=== PATIENT | male | born 1945 | race Caucasian/White ===

== ENCOUNTER 2023-06-18 15:55 | Outpatient (CLI) | payer MEDICARE, BC ==
[~2023-06-18 15:55] MED LIST: AMI200T PO; APIX5TAB3 PO; GLUC-95 PO; LEVO50TA PO; LOSA100T58 PO; OMEG1CAP46 PO
== END 2023-06-18 23:59 | disposition home or self-care (01) ==
LOC: RT 15:55
PROVIDERS: ATTEND Internal Medicine Cardiovascular Disease
DX: R94.2 Abnormal results of pulmonary function studies (principal); R53.82 Chronic fatigue, unspecified
CPT/HCPCS: 94010; 94729

== ENCOUNTER 2023-07-04 06:06 | Day surgery (SDC) | payer MEDICARE, BC ==
[2023-07-03 13:41] LABS: ANION GAP 10 (8-16); BLOOD UREA NITROGEN 23 MG/DL (7-18); BUN/CREATININE RATIO 16.3 (10.0-20.0); CALCIUM 9.3 MG/DL (8.5-10.1); CHLORIDE 104 MMOL/L (99-107); CREATININE 1.41 MG/DL (0.60-1.10); GLUCOSE 103 MG/DL (70-104); POTASSIUM 4.4 MMOL/L (3.5-5.1); SODIUM 139 MMOL/L (135-145); TOTAL CARBON DIOXIDE 25.5 MMOL/L (24-32); eGFR 49 ML/MIN
[2023-07-03 13:43] LABS: APTT 31 SECONDS (22-32); PROTHROMBIN TIME 11.2 SECONDS (9.0-12.0)
[2023-07-03 13:47] LABS: BASOPHILS # (AUTO) 0.1 X10'3 (0-0.2); BASOPHILS % (AUTO) 1.3 % (0-1); EOSINOPHILS # (AUTO) 0.4 X10'3 (0-0.9); EOSINOPHILS % (AUTO) 7.6 % (0-6); HEMATOCRIT 47.6 % (42.0-52.0); HEMOGLOBIN 15.8 g/dl (14.0-17.9); LYMPHOCYTES # (AUTO) 1.2 X10'3 (1.1-4.8); LYMPHOCYTES % (AUTO) 21.1 % (21-51); MEAN CORPUSCULAR HEMOGLOBIN 31.1 PG (27.0-31.0); MEAN CORPUSCULAR HGB CONC 33.2 g/dL (33.0-36.5); MEAN CORPUSCULAR VOLUME 93.6 FL (78-98); MEAN PLATELET VOLUME 9.2 FL (7.4-10.4); MONOCYTES # (AUTO) 0.5 X10'3 (0-0.9); MONOCYTES % (AUTO) 8.2 % (2-12); NEUTROPHILS # (AUTO) 3.5 X10'3 (1.8-7.7); NEUTROPHILS % (AUTO) 61.8 % (42-75); PLATELET COUNT 180 X10'3 (140-440); RED BLOOD COUNT 5.09 X10'6 (4.70-6.10); WHITE BLOOD COUNT 5.7 X10'3 (4.5-11.0)
[~2023-07-04] VITALS: Ht 180.3 cm; Wt 99.6 kg
[2023-07-04 06:10] VITALS: BP 157/83; PULSE 50; RESP 16; TEMP 98; O2SAT 97
[2023-07-04] MEDS ORDERED: SOTA80TA10 PO (06:32)
[2023-07-04] MEDS ORDERED: CYAN250010 PO (06:32)
[2023-07-04] MEDS ORDERED: MULT-1085 PO (06:32)
[2023-07-04] MEDS ORDERED: ERGO400C PO (06:32)
[2023-07-04] MEDS ORDERED: MIDAZolam 1mg/ml 10ml vial IV ONE (06:45)
[2023-07-04] MEDS ORDERED: diphenhydrAMINE 25mg capsule PO ONE (06:45)
[2023-07-04] MEDS ORDERED: atropine 0.1mg/ml 10ml syringe IV ONE (06:45)
[2023-07-04] MEDS ORDERED: normal saline 1000ml 1,000 ML IV SCH (06:45)
[2023-07-04] MEDS ORDERED: morphine 10mg/ml inj. IV ONE (06:45)
[2023-07-04] MEDS ORDERED: amiodarone 150mg/dext, iso-os 100 ML IV ONE (06:45)
[2023-07-04] MEDS ORDERED: LORazepam 0.5 MG tablet PO ONE (06:45)
[2023-07-04] MEDS ORDERED: midazolam 1 mg/ML 2ml injection ONE (07:42)
[2023-07-04] MEDS ORDERED: fentaNYL/PF 50MCG/1 ML 2ML syringe ONE ×2 (07:42→07:43)
--- NOTE | 2023-07-04 07:55 | NUR ---
Pt to labeling strategist for procedure
[2023-07-04] MEDS ORDERED: amiodarone 50MG/ML inj IV ONE (07:59)
[2023-07-04] MEDS ORDERED: atropine 0.1mg/ml 10ml syringe ONE (08:00)
[2023-07-04] MEDS ORDERED: morphine 2 MG/ML inj. syringe ONE (08:00)
[2023-07-04 08:45] VITALS: BP 147/75; PULSE 56; RESP 16; O2SAT 93
[2023-07-04 09:00] VITALS: BP 151/89; PULSE 54; RESP 13; O2SAT 94
[2023-07-04 09:15] VITALS: BP 147/75; PULSE 51; RESP 12; O2SAT 93
[2023-07-04 09:30] VITALS: BP 148/74; PULSE 51; RESP 14; O2SAT 93
[2023-07-04 10:00] VITALS: BP 148/72; PULSE 54; RESP 16; O2SAT 94
== END 2023-07-04 10:00 | disposition home or self-care (01) ==
LOC: SSTAY O 06:06
PROVIDERS: ATTEND Internal Medicine Cardiovascular Disease
DX: I48.91 Unspecified atrial fibrillation (principal); I45.2 Bifascicular block; I10 Essential (primary) hypertension; E78.5 Hyperlipidemia, unspecified; Z79.01 Long term (current) use of anticoagulants; Z79.82 Long term (current) use of aspirin; Z79.890 Hormone replacement therapy; Z79.899 Other long term (current) drug therapy
CPT/HCPCS: 36415; 80048; 85025; 85610; 85730; 92960; 93005; J2250; J3010; J7030; 96360; 99152; J0282; J0461; J2270

== ENCOUNTER 2023-09-27 09:45 | Emergency (ER) | payer MEDICARE, BC ==
[~2023-09-27] VITALS: Ht 180.3 cm; Wt 100.0 kg
[~2023-09-27 09:45] MED LIST changes: -AMI200T PO; +CYAN250010 PO; +ERGO400C PO; +MULT-1085 PO; +SOTA80TA10 PO
[2023-09-27 09:49] VITALS: BP 119/73; PULSE 61; RESP 16; O2SAT 96
[2023-09-27] MEDS ORDERED: AMOX-101 PO (11:00)
[2023-09-27] MEDS ORDERED: CARB15DR91 RIGHT EAR (11:00)
[2023-09-27 11:20] VITALS: TEMP 98.2
== END 2023-09-27 11:22 | disposition home or self-care (01) ==
LOC: ER 09:46
DX: H60.92 Unspecified otitis externa, left ear (principal); Z79.2 Long term (current) use of antibiotics; Z79.899 Other long term (current) drug therapy
CPT/HCPCS: 99283

== ENCOUNTER 2024-07-22 08:05 | Outpatient (CLI) | payer MEDICARE, BC ==
[~2024-07-22 08:05] MED LIST changes: +CARB15DR91 RIGHT EAR
[2024-07-22 08:46] LABS: TOTAL HEMOGLOBIN 16.4 G/dl (13.5-17.5)
[2024-07-22 09:14] VITALS: PULSE 53; RESP 14; O2SAT 93
== END 2024-07-22 23:59 | disposition home or self-care (01) ==
LOC: RT 08:05
PROVIDERS: ATTEND Internal Medicine Cardiovascular Disease
DX: Z79.899 Other long term (current) drug therapy (principal)
CPT/HCPCS: 85018; 94010; 94727; 94729; 94760

== ENCOUNTER 2025-02-04 10:06 | Day surgery (SDC) | payer MEDICARE, BC ==
[2025-02-03 13:19] LABS: BASOPHILS # (AUTO) 0.1 X10'3 (0-0.2); BASOPHILS % (AUTO) 1.1 % (0-1); EOSINOPHILS # (AUTO) 0.4 X10'3 (0-0.9); EOSINOPHILS % (AUTO) 5.7 % (0-6); HEMATOCRIT 43.5 % (42.0-52.0); HEMOGLOBIN 14.8 g/dl (14.0-17.9); LYMPHOCYTES # (AUTO) 1.1 X10'3 (1.1-4.8); MEAN CORPUSCULAR HEMOGLOBIN 30.9 PG (27.0-31.0); MEAN CORPUSCULAR HGB CONC 34.1 g/dL (33.0-36.5); MEAN CORPUSCULAR VOLUME 90.6 FL (78-98); MONOCYTES # (AUTO) 0.6 X10'3 (0-0.9); MONOCYTES % (AUTO) 8.5 % (2-12); NEUTROPHILS # (AUTO) 4.4 X10'3 (1.8-7.7); NEUTROPHILS % (AUTO) 67.7 % (42-75); PLATELET COUNT 228 X10'3 (140-440); WHITE BLOOD COUNT 6.5 X10'3 (4.5-11.0)
[2025-02-03 13:29] LABS: INR 1.1 INR; PROTHROMBIN TIME 10.9 SECONDS (9.0-12.0)
[2025-02-03 13:41] LABS: ALBUMIN 3.9 G/DL (3.4-5.0); BLOOD UREA NITROGEN 21 MG/DL (7-18); BUN/CREATININE RATIO 15.6 (10.0-20.0); CALCIUM 9.2 MG/DL (8.5-10.1); CREATININE 1.35 MG/DL (0.60-1.10); GLUCOSE 101 MG/DL (70-104); TOTAL CARBON DIOXIDE 28.8 MMOL/L (24-32); eGFR 51 ML/MIN
[2025-02-03 13:42] LABS: ANION GAP 8 (8-16); CHLORIDE 103 MMOL/L (99-107); POTASSIUM 4.8 MMOL/L (3.5-5.1); SODIUM 140 MMOL/L (135-145)
[~2025-02-04] VITALS: Ht 180.3 cm; Wt 101.2 kg
[2025-02-04] MEDS ORDERED: amiodarone 150mg/dext, iso-os 100 ML IV ONE (10:25)
[2025-02-04] MEDS ORDERED: morphine 10mg/ml inj. IV ONE (10:25)
[2025-02-04] MEDS ORDERED: LORazepam 0.5 MG tablet PO ONE (10:25)
[2025-02-04] MEDS ORDERED: atropine 0.1mg/ml 10ml syringe IV ONE (10:25)
[2025-02-04] MEDS ORDERED: diphenhydrAMINE 25mg capsule PO ONE (10:25)
[2025-02-04] MEDS ORDERED: MIDAZolam 1mg/ml 10ml vial IV ONE (10:25)
[2025-02-04] MEDS ORDERED: normal saline 1000ml 1,000 ML IV SCH (10:25)
[2025-02-04] MEDS ORDERED: METO-395 PO (10:31)
[2025-02-04] MEDS ORDERED: AMI200T PO (10:31)
--- NOTE | 2025-02-04 10:32 | ELECTROCARDIOGRAPH REPORT ---
[facility] Test Date: 2025-02-04 Test Time: 10:28:51 Pat Name: DELILAH GONZALEZ Department: [facility] Patient ID: [facility]-[id number] Room: Gender: M Land Clearer: UZMA : 1945 Requested By: CLARKE ALBERTS Order Number: [id number] Reading MD: Dr. 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 CAMERON Alberts Please click the below link to view image of tracing.
[2025-02-04 11:08] VITALS: RESP 15; O2SAT 96
[2025-02-04] MEDS ORDERED: amiodarone 50MG/ML inj IV ONE (11:21)
[2025-02-04] MEDS ORDERED: fentaNYL/PF 50MCG/1 ML 2ML syringe ONE (11:22)
[2025-02-04] MEDS ORDERED: atropine 0.1mg/ml 10ml syringe ONE (11:22)
[2025-02-04] MEDS ORDERED: midazolam 1 mg/ML 2ml injection ONE ×2 (11:22→11:39)
[2025-02-04 12:45] VITALS: BP 145/74; PULSE 69; RESP 15; O2SAT 92
--- NOTE | 2025-02-04 12:49 | ELECTROCARDIOGRAPH REPORT ---
[facility] Test Date: 2025-02-04 Test Time: 12:45:54 Pat Name: DELILAH GONZALEZ Department: [facility] Patient ID: [id number] Room: Gender: M Quartz Cutter: UZMA : 1945 Requested By: CLARKE ALBERTS Order Number: [id number] Reading MD: Dr. CAMERON Alberts Measurements Intervals [place] Rate: 63 P: 0 VA: 0 QRS: -72 QRSD: 167 T: 45 QT: 507 QTc: 520 Interpretive Statements Atrial fibrillation RBBB and LAFB Probable left ventricular hypertrophy Electronically Signed On 02-04-2025 19:06:[address] CAMERON Alberts Please click the below link to view image of tracing.
[2025-02-04 13:00] VITALS: BP 143/71; PULSE 66; RESP 17; O2SAT 93
[2025-02-04 13:15] VITALS: BP 145/74; PULSE 65; RESP 13; O2SAT 92
[2025-02-04 13:30] VITALS: BP 141/76; PULSE 63; RESP 13; O2SAT 94
--- NOTE | 2025-02-04 17:00 | CARDIOLOGY REPORT ---
DATE OF SERVICE: 02/04/2025 DICTATING PHYSICIAN: CAMERON Neves MD ELECTRICAL CARDIOVERSION INDICATION: The patient is an 79-year-old male with history of hypertension, hyperlipidemia, history of sick sinus syndrome, PAF, status post loop recorder insertion. History of PAF dates back to 2022. He had a cardioversion in 06/2023. Then, he subsequently had a cardiac ablation by Dr. Dugan on 09/25/23. Sotalol was changed to amiodarone. Currently, the patient is back on Eliquis, carvedilol and amiodarone. AFib recurred back in October, he was in sinus rhythm. In the last few weeks, the patient has recurred to AFib with worsening symptoms. After discussing risks, benefits, and alternative options, the patient prefers to proceed with electrical cardioversion. Risks, benefits, and alternative options were discussed and informed consent was obtained. DESCRIPTION OF PROCEDURE: Anterior and posterior patches used. Using biphasic electrical energy 200 joules, converted to normal sinus rhythm. IMPRESSION: An 79-year-old with persistent AFib, converted to normal sinus rhythm. Continue amiodarone, Eliquis, and metoprolol. RECOMMEND: Diet, weight loss, and exercise program and recommend sleep study. CAMERON Neves MD TID: [id number] RECEIPT: [id number] MERRITT/CHYNA/PIYUSH cc: , Loco Olmos MD [facility]
== END 2025-02-04 13:50 | disposition home or self-care (01) ==
LOC: SSTAY O 10:06
PROVIDERS: ATTEND Internal Medicine Cardiovascular Disease
DX: I48.0 Paroxysmal atrial fibrillation (principal); I49.5 Sick sinus syndrome; I48.19 Other persistent atrial fibrillation; I42.9 Cardiomyopathy, unspecified; I11.0 Hypertensive heart disease with heart failure; I50.22 Chronic systolic (congestive) heart failure; E78.5 Hyperlipidemia, unspecified; Z87.891 Personal history of nicotine dependence; Z79.01 Long term (current) use of anticoagulants; Z79.899 Other long term (current) drug therapy; Z95.5 Presence of coronary angioplasty implant and graft; I45.19 Other right bundle-branch block
CPT/HCPCS: 36415; 80048; 85025; 85610; 92960; 93005; 99152; J2250; J3010; J7030; Z7610; 99153; J0282; J0461

== ENCOUNTER 2025-03-23 13:49 | Outpatient (CLI) | payer MEDICARE, BC ==
[~2025-03-23] VITALS: Ht 180.3 cm; Wt 95.3 kg
[~2025-03-23 13:49] MED LIST changes: +AMI200T PO; -CARB15DR91 RIGHT EAR; +CHOL400T58 PO; +DAPA10TA PO; -ERGO400C PO; +FURO20TA4 PO; -GLUC-95 PO; +METO-395 PO; -SOTA80TA10 PO
[2025-03-23] MEDS: albuterol 2.5 MG/3 ML nebule NEB ONE (14:51)
[2025-03-23 14:58] VITALS: PULSE 63; RESP 16; O2SAT 96
[2025-03-23 15:10] VITALS: PULSE 63; RESP 16
--- NOTE | 2025-03-29 13:40 | PROCEDURE NOTE - Respiratory ---
Procedure Note-Respiratory Providers to CC Copies To 1: PEGGY SCOTT MD; CLARKE ALBERTS MD Procedure Name: This is a complete pulmonary function study dated March 23, 2025. Hemoglobin measurement was done as part of the study. Spirometry measurements: The forced vital capacity is mildly reduced. The FEV1 is moderately reduced. The FEV1 ratio is clearly reduced. All of the measured flow rates are reduced. After inhaled bronchodilator was administered, there is small but significant improvement in the FEV1 and the flow rates. Lung volume measurements: The total lung capacity is mildly reduced. The functional residual capacity is in the lower range of normal. Lung diffusion measurement: The DLCO measurement is normal. It is noted that the hemoglobin measurement is normal. Airway resistance measurement: The airway resistance is slightly increased. Conclusion: This study is abnormal. There is evidence for obstructive ventilatory defect in the [id number] category. It is partially reversible with inhaled bronchodilator. These findings are consistent with the patient's history of asthma. In addition there is evidence for mild restrictive ventilatory defect. This restrictive pattern is new compared to pulmonary function testing done one year earlier. 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 The lung diffusion capacity remains in the normal range. Compared to a study done in July of 2024 the FEV1 and the forced vital capacity have deteriorated. The total lung capacity has also decreased from 7.2 L to 5.6 L. the DLCO uncorrected has deteriorated slightly from 27 down to 23. 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 For this patient an alternative anti arrhythmic drug should be considered to replace amiodarone. Bronchodilator therapy may very well help this patient. Repeat pulmonary function testing is recommended with an approximately 12 months. JANNETH SIGALA MD Mar 29, 2025 13:39
== END 2025-03-23 23:59 | disposition home or self-care (01) ==
LOC: RT 13:49
PROVIDERS: ATTEND Internal Medicine Cardiovascular Disease
DX: R06.02 Shortness of breath (principal); Z79.899 Other long term (current) drug therapy; Z87.891 Personal history of nicotine dependence
CPT/HCPCS: 94060; 94727; 94729; 94760; A4615

== ENCOUNTER 2025-08-26 14:02 | Emergency (ER) | payer MEDICARE, BC ==
[~2025-08-26] VITALS: Ht 180.3 cm; Wt 90.3 kg
[~2025-08-26 14:02] MED LIST changes: -AMI200T PO; +AMIO200T76 PO
--- NOTE | 2025-08-26 14:27 | Physician Documentation ---
History of Present Illness ~ Chief Complaint: Mechanical Fall Stated Complaint: FALL HIT HEAD ON THINNERS Time Seen by MD: 15:54 HPI Is a very pleasant 79-year-old male that presents to the emergency department for evaluation of injuries sustained after a fall just prior to presenting to the emergency department today. Reports that he has suffered a mechanical ground level fall struck his head lacerating his eyelid just below the eyebrow on the right side striking his elbow on the right side and injuring his ribs. Patient denies any loss of consciousness during the event. Patient reports that he takes Eliquis. Patient denies any visual changes nausea vomiting or any other symptoms at this time. Patient does report headache. Patient reports he has not taken any Tylenol since injury and eating Tylenol at this time. Medication Reconciliation Allergies: Coded Allergies: No Known Allergies (Unverified , 08/26/25) Scheduled Amiodarone Hcl (Cordarone), 1 TAB PO BID, (Reported) Apixaban (Eliquis), 1 TAB PO BID, (Reported) Cholecalciferol (Vitamin D3) (Vitamin D3), Unknown Dose PO DAILY, (Reported) Cyanocobalamin (Vitamin B-12) (Vitamin B12), Unknown Dose PO DAILY, (Reported) Dapagliflozin Propanediol (Farxiga), 1 TAB PO DAILY Levothyroxine Sodium (Synthroid), 1 TAB PO DAILY, (Reported) Losartan Potassium (Losartan Potassium), 1 TAB PO DAILY, (Reported) Metoprolol Succinate (Metoprolol Succinate), 1 TAB PO DAILY, (Reported) Multivitamin (Multi Vitamin Daily), 1 TAB PO DAILY, (Reported) [place]-3 Fatty Acids/Fish Oil ([place] 3 1,000 mg Softgel), 1 CAP PO DAILY, (Reported) Scheduled PRN Furosemide (Furosemide), 1 TAB PO DAILY PRN for LE Swelling, (Reported) Review of Systems ROS As stated above in the HPI, otherwise all systems are reviewed and negative. Physical Exam Vital Signs: Temperature: 97.7, Source: Temporal, Heart Rate: 68, Respiratory Rate: 18, BP: 129/82, Pulse Oximetry: 96, Weight: 90.300 Oxygen Flow Rate: 0 Physical Exam VITALS: Reviewed and as above. GENERAL: Alert, no apparent distress. HEENT: Normocephalic, atraumatic, PERRL, EOMI, dry mucosa, no erythema RESPIRATORY: Lungs clear, normal breath sounds, no respiratory distress. CHEST: No accessory muscle use, no retractions CV: Regular rate, rhythm, no edema, no murmur, No: JVD GI: Soft, non-tender, bowels sounds present, no rebound, guarding, or rigidity BACK: No CVA tenderness, or swelling MUSCULOSKELETAL No deformities, edema noted to the right orbital area and upper eyelid with a small laceration noted laceration will not need repair, noted to the right elbow with range of motion,, noted to the right ribs palpation during examination. SKIN: Warm and dry, no rash NEURO: Oriented x4, No motor or sensory deficit PSYCH: Normal mood and affect, no agitation Progress Results/Orders Results/Orders Orders - VY CABALLERO PARKING ASSISTANT Ct Head (08/26/25 14:23) Elbow, Complete (3vw Min) (08/26/25 14:23) Ribs,Unilat (08/26/25 14:23) Completed Orders - VY CABALLERO PARKING ASSISTANT Ct Head (08/26/25 14:23) Elbow, Complete (3vw Min) (08/26/25 14:23) Ribs,Unilat (08/26/25 14:23) Vital Signs 08/26/25 14:16 Temp 97.7 Pulse 68 Resp 18 B/P (MAP) 129/82 Pulse Ox 96 O2 Flow Rate 0 Medical Decision Making Additional information obtaine: other Findings MEDICAL DECISION MAKING Chief Complaint: Ground-level fall with right eyelid laceration, right elbow injury with possible olecranon process avulsion fracture, and nondisplaced 8th rib fracture History of Present Illness: 79-year-old male presented to the emergency department following a mechanical ground-level fall. Patient sustained a laceration to the right eyelid just below the eyebrow, injury to the right elbow with imaging demonstrating possible nondisplaced olecranon process avulsion or tug fracture with overlying soft tissue swelling, and a nondisplaced fracture of the 8th rib. Patient denies loss of consciousness, visual changes, nausea, or vomiting. Reports headache. Patient is currently taking apixaban (Eliquis) for anticoagulation. Has not taken acetaminophen since the injury. Complexity of Medical Decision Making: Moderate to High The complexity of this case is elevated due to several factors: Anticoagulation Status: Patient is on apixaban, a direct oral anticoagulant, which increases risk for delayed intracranial hemorrhage following head trauma. The [place] [employer] guidelines recommend comprehensive evaluation of anticoagulated geriatric patients presenting after falls, including assessment of coagulation profile and consideration for observation. Head Injury with Anticoagulation: Despite negative initial head CT and no intracranial abnormalities, the combination of headache, head trauma (eyelid laceration), and anticoagulation warrants careful consideration. Observation for 24 hours is typically recommended for elderly patients on anticoagulants with head trauma to monitor for delayed intracranial hemorrhage, though this patient's clinical presentation and negative imaging support discharge with appropriate precautions and follow-up. Multiple Orthopedic Injuries: The patient has sustained injuries to multiple body regions (head/face, upper extremity with possible olecranon process avulsion fracture, chest wall), requiring comprehensive evaluation and coordinated management. The olecranon process injury with overlying soft tissue swelling necessitates immobilization and orthopedic follow-up to assess healing and determine if surgical intervention may be required. Rib Fracture Management: The nondisplaced 8th rib fracture requires pain management and monitoring for complications. Patients with blunt chest wall trauma, particularly those on anticoagulants, demonstrate increased healthcare utilization in the 12-week period post-injury. Fall Risk Assessment: As recommended by the [place] [employer], comprehensive fall assessment is essential. The [place] [employer] guidelines emphasize that if a fall was the mechanism of injury, assessment by a fall specialist or physical therapist is recommended prior to renewal of anticoagulation, and the risk of recurrent fall injury must be weighed against the risk of the medical condition necessitating anticoagulation. Risk Stratification: Age >65 years: Increased fall risk and complications from bedrest Anticoagulation: Increased bleeding risk, though studies show anticoagulation benefits often outweigh fall-related bleeding risks in appropriate patients Multiple injuries: Increased complexity of care and rehabilitation needs Upper extremity injury requiring immobilization: Increased fall risk and functional impairment Headache with negative imaging: Low but present risk of delayed complications Diagnostic Workup: Head CT: Negative for intracranial abnormalities Imaging of right elbow: Demonstrates possible nondisplaced olecranon process avulsion or tug fracture with overlying soft tissue swelling Chest imaging confirming nondisplaced 8th rib fracture Coagulation assessment appropriate given anticoagulation status Treatment Plan: Wound Care: Right eyelid laceration managed appropriately Orthopedic Management: Right upper extremity placed in sling for immobilization of possible olecranon process avulsion fracture. Patient instructed on proper sling use and importance of immobilization to promote healing. Pain Management: Patient has not taken acetaminophen; appropriate analgesia should be prescribed with clear instructions, avoiding NSAIDs given anticoagulation status Rib Fracture Care: Conservative management with pain control and pulmonary hygiene instructions Anticoagulation Management: Continue apixaban as prescribed. The decision to continue anticoagulation is supported by evidence that in patients with atrial fibrillation at average risk of stroke and falls, anticoagulation therapy provides significant quality-adjusted life-year benefits. Disposition Decision: Discharge to home is appropriate based on: Negative head CT without intracranial abnormalities Stable vital signs and neurologic examination Patient denies loss of consciousness Orthopedic injuries appropriately immobilized Ability to ambulate safely with sling in place (pending gait assessment) Appropriate home support and follow-up available While observation for 24 hours is often considered for anticoagulated elderly fall patients with head trauma, the patient's clinical stability, negative imaging, and lack of concerning neurologic symptoms support safe discharge with appropriate precautions and close follow-up. Discharge Planning: Per [place] [employer] guidelines, comprehensive discharge planning includes: Large font discharge instructions provided Clear documentation of presenting complaints, test results, ED therapy, working diagnosis, and follow-up plan Safety assessment including gait evaluation ("get up and go test") Fall risk assessment and prevention strategies Evaluation of home environment and need for assistive devices Assessment of activities of daily living, particularly given upper extremity immobilization Assessment of need for home health services given multiple injuries and functional limitations Follow-up: Primary care physician within 3-5 days for: Wound check Pain reassessment Evaluation of olecranon process injury and determination of need for orthopedic referral Rib fracture assessment Fall risk evaluation and potential physical therapy referral Medication review, including reassessment of anticoagulation appropriateness Orthopedic evaluation as arranged by primary care physician for assessment of olecranon process injury and determination of definitive management Return precautions: Immediate return for worsening headache, vision changes, confusion, difficulty breathing, severe pain, increased elbow swelling or inability to move fingers, or any new concerning symptoms Physical therapy evaluation recommended for fall prevention assessment, home safety evaluation, and functional assessment given upper extremity immobilization Patient Education: Proper sling use and importance of immobilization Rib fracture care and pulmonary hygiene Fall prevention strategies, particularly with one arm immobilized Medication compliance, particularly anticoagulation Warning signs requiring immediate return to ED Pain management strategies Activities of daily living modifications while in sling Prognosis: Good with appropriate follow-up and fall prevention interventions. The patient's injuries are manageable with conservative treatment, though the olecranon process injury requires close orthopedic follow-up to ensure appropriate healing. With proper discharge planning and community resources, risk of complications and recurrent falls can be minimized. Differential Dx:Considerations: Include: Closed head injury, Cardiac injury, Fracture(s), Intraabdominal injury, Pneumothorax, Cerebral contusion, Pulmonary contusion, Spine injury, Tracheal injury, Urological injury, Vascular injury, Abrasion(s), Contusion(s), Foreign body(s), Hematoma(s), Laceration(s), Encephalopathy, Other Departure Disposition: 01 HOME / SELF CARE / HOMELESS Impression: Primary Impression: Fracture of rib Additional Impressions: Fall Elbow injury Condition: Stable Discharge Instructions: Fall Prevention in the Home, Adult, [id number], Rib Fracture, Olecranon Fracture Additional Instructions: DISCHARGE INSTRUCTIONS You are being discharged home after your fall today. You have several injuries that need care and attention: Right elbow injury (possible small fracture near the tip of your elbow) Fractured 8th rib on your right side Cut on your right eyelid (below your eyebrow) Headache from hitting your head WHAT YOU NEED TO DO AT HOME For Your Elbow: Keep your arm in the sling at all times except when doing gentle exercises or bathing You may remove the sling briefly to gently bend and straighten your elbow a few times per day to prevent stiffness Do not lift anything heavy with your right arm Apply ice to your elbow for 15-20 minutes at a time, several times a day, to reduce swelling Elevate your arm on pillows when sitting or lying down For Your Rib Fracture - THIS IS VERY IMPORTANT: You must take deep breaths regularly to prevent pneumonia. Rib fractures can make breathing painful, but shallow breathing can lead to serious lung infections. Take 10 deep breaths every hour while awake Hold a pillow against your ribs when you cough or take deep breaths - this is called "splinting" and helps reduce pain If the pain is preventing you from taking deep breaths, you need to take pain medication (see below) Do not lie flat in bed all day - sit up in a chair regularly and move around your home as much as you can safely do so For Your Head Injury: Your CT scan of your head was normal, which is good news Your headache should improve over the next few days Watch for warning signs (see below) PAIN MANAGEMENT You declined prescription pain medication today. You may take acetaminophen (Tylenol) at home for pain: Take 650 mg (two regular strength tablets) every 6 hours as needed for pain Do not exceed 3,000 mg (six regular strength tablets) in 24 hours because you are over 80 years old You must take enough pain medication to allow you to take deep breaths - this is critical to prevent pneumonia Do not take ibuprofen (Advil, Motrin) or other anti-inflammatory medications because you are taking Eliquis (apixaban) for blood thinning If acetaminophen is not controlling your pain well enough to take deep breaths, call your doctor right away - you may need stronger pain medication. FOLLOW-UP APPOINTMENTS - VERY IMPORTANT 1. Orthopedics Appointment: Call [facility] on Friday at [phone] Ask to schedule an appointment with Dr. Carlos or another orthopedic doctor They need to see you within the next week to check your elbow injury and discuss your rib fracture if needed Bring your sling to this appointment 2. Primary Care Provider: Call your primary care doctor on Friday to schedule a follow-up appointment They should see you within 3-5 days They will check your wounds, assess your pain control, and evaluate your risk for future falls [4] RETURN TO THE EMERGENCY DEPARTMENT IMMEDIATELY IF YOU HAVE: For Your Head: Worsening headache or headache that doesn't improve with acetaminophen Confusion or difficulty thinking clearly Vision changes or double vision Nausea or vomiting Weakness or numbness in your arms or legs Difficulty speaking or understanding others Seizures For Your Breathing: Difficulty breathing or shortness of breath Fever over 100.4F (this could mean pneumonia) Coughing up blood or yellow/green mucus Chest pain that gets worse For Your Elbow: Severe pain that is not controlled with acetaminophen Numbness or tingling in your fingers Inability to move your fingers Significant increase in swelling Fingers that turn blue or very pale FALL PREVENTION You had a fall today, and it's important to prevent future falls: Remove tripping hazards from your home (loose rugs, electrical cords, clutter) Improve lighting in hallways, stairs, and bathrooms Install grab bars in the bathroom near the toilet and in the shower/tub Wear sturdy, non-slip shoes - avoid slippers and socks on smooth floors Use assistive devices if recommended (cane or walker) Take your time when getting up from sitting or lying down - stand still for a moment before walking Be extra careful while your arm is in a sling, as this affects your balance Your primary care doctor may refer you to physical therapy to help assess your walking and balance and make recommendations to keep you safe at home. MEDICATIONS Continue taking your Eliquis (apixaban) exactly as prescribed - do not stop this medication Your doctor will review all your medications at your follow-up appointment ACTIVITY You may do light activities as tolerated Do not drive while your arm is in a sling Avoid heavy lifting, pushing, or pulling Move around regularly - do not stay in bed all day Ask for help with tasks that require two hands WOUND CARE Keep your eyelid wound clean and dry Follow any specific wound care instructions given to you today Watch for signs of infection (increasing redness, warmth, swelling, pus, or red streaks) Referrals: NO PRIMARY CARE PROVIDER (PCP) Education Educated: Patient Educated regarding: diagnosis, treatment, need for follow up Signature Scribe Signature: A Attestation: Scribed for Vy Caballero by NOVA Fried . 08/26/25 16:40 VY CABALLERO Aug 26, 2025 14:27
--- NOTE | 2025-08-26 14:46 | RADIOLOGY REPORT ---
CLINICAL HISTORY: Fall, head strike, blood thinners TECHNIQUE: Helical scanning was performed of the head from the skull base to the vertex. Multiplanar reconstructions were performed. This exam was performed according to our departmental dose optimization program. Up-to-date CT equipment and radiation dose reduction techniques are utilized as appropriate. CTDI 64 DLP 1149 COMPARISON: None FINDINGS: There is no evidence for acute intracranial hemorrhage, acute ischemic changes, mass, mass effect, or extra-axial fluid collection. There is no hydrocephalus or midline shift. There is no effacement of the cerebral sulci and basal subarachnoid cisterns. The gaona-white matter differentiation is well maintained. The imaged paranasal sinuses are clear. IMPRESSION: NO ACUTE INTRACRANIAL ABNORMALITY SEEN.
--- NOTE | 2025-08-26 15:47 | RADIOLOGY REPORT ---
FRONTAL CHEST AND RIGHT RIB RADIOGRAPHS HISTORY: Fakk TECHNIQUE: Multiple views of the right ribs with frontal view of the chest. COMPARISON: None. FINDINGS: Severe degenerative changes of the right glenohumeral joint. There is elevation of the left hemidiaphragm. There is a nondisplaced a 8th lateral rib fracture. Partially imaged lumbar fusion hardware. A loop recorder device is noted over the chest. IMPRESSION: Nondisplaced right 8th lateral rib fracture Severe right shoulder degeneration No acute cardiopulmonary findings
--- NOTE | 2025-08-26 15:49 | RADIOLOGY REPORT ---
EXAM: DI ELBOW, COMPLETE (3VW MIN) CLINICAL HISTORY: Fakk COMPARISON: None TECHNIQUE: DI ELBOW, COMPLETE (3VW MIN), right-sided Findings: Possible nondisplaced fracture involving the olecranon process. There is overlying soft tissue swelling. Moderate degenerative changes of the ulnohumeral joint with marginal osteophytes. Impression: Possible nondisplaced olecranon process avulsion/tug fracture with overlying soft tissue swelling.
[2025-08-26 17:02] VITALS: BP 142/78; PULSE 68; RESP 18; TEMP 97.2; O2SAT 99
== END 2025-08-26 17:04 | disposition home or self-care (01) ==
LOC: ER 14:03
DX: S22.31XA Fracture of one rib, right side, initial encounter for closed fracture (principal); S59.901A Unspecified injury of right elbow, initial encounter; W01.10XA Fall on same level from slipping, tripping and stumbling with subsequent striking against unspecified object, initial encounter; Y93.89 Activity, other specified; Y92.89 Other specified places as the place of occurrence of the external cause; Y99.8 Other external cause status
CPT/HCPCS: 70450; 71100; 73080; 99284; A6402; Z7610; A6449